=== PATIENT | female | born 1960 | race Caucasian/White ===

== ENCOUNTER 2018-07-05 01:43 | Emergency (ER) | payer SELFPAY ==
[2018-07-05] MEDS ORDERED: HYDROCODONE/APAP 10/325 TAB ONE (02:21)
[2018-07-05] MEDS ORDERED: CLINDAMYCIN HCL 150 MG CAP ONE (02:22)
[2018-07-05] MEDS ORDERED: KETOROLAC 30 MG/ML INJ ONE (02:22)
--- NOTE | 2018-07-05 02:28 | ER ---
Nurse's Notes [facility] Name: Marychuy Tobar Age: 57 yrs Sex: Female : 1960 Arrival Date: 07/05/2018 Time: 01:44 Bed 15 Private MD: Diagnosis: Dental caries;Gingivitis and periodontal diseases Presentation: 07/05 01:50 Presenting complaint: Patient states: I'm having some toothache at the left lower molar rr5 cap started today. associated with jaw throat and headache pain score of 10/10. 01:50 Transition of care: patient was not received from another setting of care. Onset of rr5 symptoms was July 04, 2018. Risk Assessment: Do you want to hurt yourself or someone else? Patient reports no desire to harm self or others. Initial Sepsis Screen: Does the patient meet any 2 criteria? No. Patient's initial sepsis screen is negative. Does the patient have a suspected source of infection? No. Patient's initial sepsis screen is negative. Care prior to arrival: None. 01:50 Method Of Arrival: Ambulatory rr5 01:50 Acuity: CIERRA 4 rr5 Historical: - Allergies: 01:50 No Known Allergies; rr5 - Home Meds: 01:50 cholesterol medicine [Active]; rr5 - PMHx: 01:50 cholesterol; rr5 - PSHx: 01:50 ; rr5 - Immunization history:: Adult Immunizations up to date, Flu vaccine is not up to date. - Social history:: Smoking status: Patient uses tobacco products, smokes one pack cigarettes per day. - Ebola Screening: : Patient negative for fever greater than or equal to 101.5 degrees Fahrenheit, and additional compatible Ebola Virus Disease symptoms Patient denies exposure to infectious person Patient denies travel to an Ebola-affected area in the 21 days before illness onset. - Family history:: not pertinent. - Hospitalizations: : No recent hospitalization is reported. Screenin:58 Abuse screen: Denies threats or abuse. Denies injuries from another. Nutritional rr5 screening: No deficits noted. Tuberculosis screening: No symptoms or risk factors identified. Fall Risk None identified. Total Butler Fall Scale indicates No Risk (0-24 pts). Assessment: 01:50 General: Appears in no apparent distress. uncomfortable, Behavior is calm, cooperative, rr5 appropriate for age. Pain: Complains of pain in left lower molar tooth Pain radiates to throat, jaw, head Pain currently is 10 out of 10 on a pain scale. Quality of pain is described as aching, Pain began gradually, Is intermittent. 01:50 Neuro: Level of Consciousness is awake, alert, obeys commands, Oriented to person, rr5 place, time, situation, Appropriate for age. Cardiovascular: Capillary refill < 3 seconds Patient's skin is warm and dry. Respiratory: Airway is patent Respiratory effort is even, unlabored, Respiratory pattern is regular, symmetrical. GI: No signs and/or symptoms were reported involving the gastrointestinal system. : No signs and/or symptoms were reported regarding the genitourinary system. EENT: Throat is clear Reports toothache. Derm: No signs and/or symptoms reported regarding the dermatologic system. Musculoskeletal: No signs and/or symptoms reported regarding the musculoskeletal system. 01:50 Respiratory: Breath sounds are clear. rr5 02:50 Reassessment: Patient appears in no apparent distress at this time. Patient is alert, rr5 oriented x 3, equal unlabored respirations, skin warm/dry/pink. I feel o lot better as verbalized. discharge instruction given and explained without complaints made. Patient states feeling better. Patient states symptoms have improved. Vital Signs: 01:50 BP 134 / 99; Pulse 95; Resp 17; Temp 97.9; Pulse Ox 100% ; Weight 45.36 kg; Height 5 rr5 ft. 2 in. (157.48 cm); Pain 10/10; 02:49 BP 107 / 74; Pulse 75; Resp 16; Pulse Ox 99% on R/A; Pain 6/10; rr5 01:50 Body Mass Index 18.29 (45.36 kg, 157.48 cm) rr5 ED Course: 01:44 Patient arrived in ED. do 01:50 Pete Sigala MD is Attending Physician. rn 01:50 Arm band placed on right wrist. rr5 01:51 Jose Alfredo Ma RN is Primary Nurse. rr5 01:55 Triage completed. rr5 01:58 Patient has correct armband on for positive identification. Bed in low position. Call rr5 light in reach. Side rails up X2. Pulse ox on. NIBP on. 02:50 No provider procedures requiring assistance completed. Patient did not have IV access rr5 during this emergency room visit. Administered Medications: 02:11 Drug: Ketorolac 15 mg Route: IM; Site: right gluteus; rr5 02:48 Follow up: Response: No adverse reaction rr5 02:12 Drug: Clindamycin 300 mg Route: PO; rr5 02:48 Follow up: Response: No adverse reaction rr5 02:14 Drug: [place] 10 mg-325 mg 1 tabs Route: PO; rr5 02:48 Follow up: Response: No adverse reaction rr5 Outcome: 02:27 Discharge ordered by . rn 02:50 Discharged to home ambulatory, with family. rr5 02:50 Condition: stable 02:50 Discharge instructions given to patient, Instructed on discharge instructions, follow up and referral plans. medication usage, Demonstrated understanding of instructions, follow-up care, medications, Prescriptions given X 2. 02:51 Patient left the ED. rr5 Signatures: Pete Sigala MD MD rn Louis[place], Jose Alfredo Puente RN RN rr5
--- NOTE | 2018-07-05 02:28 | EDPHYS ---
Physician Documentation [facility] Name: Marychuy Tobar Age: 57 yrs Sex: Female : 1960 Arrival Date: 07/05/2018 Time: 01:44 Bed 15 Private MD: ED Physician Pete Sigala HPI: 07/05 02:02 This 57 yrs old Female presents to ER via Ambulatory with complaints of rn Toothache. 02:02 The patient presents with pain. The problem is located in the left bottom posterior rn teeth. Onset: The symptoms/episode began/occurred 2 day(s) ago. Duration: The symptoms are continuous. Modifying factors: The symptoms are alleviated by nothing, the symptoms are aggravated by chewing, talking. Severity of symptoms: At their worst the symptoms were moderate, in the emergency department the symptoms are unchanged. The patient has experienced similar episodes in the past. Reports hx of multiple dental problems, told by dentist needs teeth pulled, reports moderate pain to left posterior/bottom area, no specific tooth. No facial swelling. No trouble swallowing.. Historical: - Allergies: 01:50 No Known Allergies; rr5 - Home Meds: 01:50 cholesterol medicine [Active]; rr5 - PMHx: 01:50 cholesterol; rr5 - PSHx: 01:50 ; rr5 - Immunization history:: Adult Immunizations up to date, Flu vaccine is not up to date. - Social history:: Smoking status: Patient uses tobacco products, smokes one pack cigarettes per day. - Ebola Screening: : Patient negative for fever greater than or equal to 101.5 degrees Fahrenheit, and additional compatible Ebola Virus Disease symptoms Patient denies exposure to infectious person Patient denies travel to an Ebola-affected area in the 21 days before illness onset. - Family history:: not pertinent. - Hospitalizations: : No recent hospitalization is reported. ROS: 02:02 Constitutional: Negative for fever, chills, and weight loss, Eyes: Negative for injury, rn pain, redness, and discharge, ENT: + dental pain Neck: Negative for injury, pain, and swelling, Respiratory: Negative for shortness of breath, cough, wheezing, and pleuritic chest pain. Exam: 02:02 Constitutional: This is a well developed, well nourished patient who is awake, alert, rn and in no acute distress. ENT: + poor dentition without oral abscess, no stridor, + mild gingival swelling and irritation Vital Signs: 01:50 BP 134 / 99; Pulse 95; Resp 17; Temp 97.9; Pulse Ox 100% ; Weight 45.36 kg; Height 5 rr5 ft. 2 in. (157.48 cm); Pain 10/10; 02:49 BP 107 / 74; Pulse 75; Resp 16; Pulse Ox 99% on R/A; Pain 6/10; rr5 01:50 Body Mass Index 18.29 (45.36 kg, 157.48 cm) rr5 MDM: 01:50 Patient medically screened. rn 02:26 Differential diagnosis: dental caries, gingivitis, dental abscess. Data reviewed: vital rn signs, nurses notes, and as a result, I will discharge patient. Counseling: I had a detailed discussion with the patient and/or guardian regarding: the historical points, exam findings, and any diagnostic results supporting the discharge/admit diagnosis, the need for outpatient follow up, to return to the emergency department if symptoms worsen or persist or if there are any questions or concerns that arise at home. Response to treatment: the patient's symptoms have mildly improved after treatment, and as a result, I will discharge patient. Special discussion: I discussed with the patient/guardian in detail that at this point there is no indication for admission to the hospital. It is understood, however, that if the symptoms persist or worsen the patient needs to return immediately for re-evaluation. Based on the history and exam findings, there is no indication for further emergent testing or inpatient evaluation. I discussed with the patient/guardian the need to see a dentist for further evaluation of the symptoms. Administered Medications: 02:11 Drug: Ketorolac 15 mg Route: IM; Site: right gluteus; rr5 02:48 Follow up: Response: No adverse reaction rr5 02:12 Drug: Clindamycin 300 mg Route: PO; rr5 02:48 Follow up: Response: No adverse reaction rr5 02:14 Drug: [place] 10 mg-325 mg 1 tabs Route: PO; rr5 02:48 Follow up: Response: No adverse reaction rr5 Disposition: 07/05/18 02:27 Discharged to Home. Impression: Dental caries, Gingivitis and periodontal diseases. - Condition is Stable. - Discharge Instructions: Dental Pain. - Prescriptions for Clindamycin HCl 300 mg Oral Capsule - take 1 capsule by ORAL route every 6 hours for 10 days; 40 capsule. Tylenol- Codeine #3 300-30 mg Oral Tablet - take 1 tablet by ORAL route every 6 hours As needed; 15 tablet. - Medication Reconciliation Form, Thank You Letter, Antibiotic Education, Prescription Opioid Use form. - Follow up: Private Physician; When: As needed; Reason: Recheck today's complaints, Re-evaluation by your physician. - Problem is an ongoing problem. - Symptoms have improved. Signatures: Pete Sigala MD MD rn Roque, Raymond, RN RN rr5 Corrections: (The following items were deleted from the chart) 02:51 02:27 07/05/2018 02:27 Discharged to Home. Impression: Dental caries; Gingivitis and rr5 periodontal diseases. Condition is Stable. Forms are Medication Reconciliation Form, Thank You Letter, Antibiotic Education, Prescription Opioid Use. Follow up: Private Physician; When: As needed; Reason: Recheck today's complaints, Re-evaluation by your physician. Problem is an ongoing problem. Symptoms have improved. rn
== END 2018-07-05 02:51 | disposition home or self-care (01) ==
LOC: ER 01:43
DX: K02.9 Dental caries, unspecified (principal); K05.10 Chronic gingivitis, plaque induced; K05.6 Periodontal disease, unspecified; F17.210 Nicotine dependence, cigarettes, uncomplicated; E78.00 Pure hypercholesterolemia, unspecified
CPT/HCPCS: 96372; 99283

== ENCOUNTER 2019-07-25 13:18 | Emergency (ER) | payer OTHER, SELFPAY ==
--- NOTE | 2019-07-25 14:19 | ER ---
Nurse's Notes [facility] Name: Marychuy Tobar Age: 58 yrs Sex: Female : 1960 Arrival Date: 07/25/2019 Time: 13:26 Bed Waiting Private MD: Diagnosis: ED Course: 07/24 13:26 Patient arrived in ED. as 14:18 Patient's name was called from ER lobby. Unable to locate patient. Will disposition as ca1 left without being seen by a provider. Administered Medications: No medications were administered Outcome: 14:19 Patient left the ED. ca1 Signatures: Radha Harris Cheryl RN RN ca1
== END 2019-07-25 14:19 | disposition left against medical advice (07) ==
LOC: ER 13:18
DX: Z53.21 Procedure and treatment not carried out due to patient leaving prior to being seen by health care provider (principal)

== ENCOUNTER 2020-06-01 10:20 | Emergency (ER) | payer OTHER ==
--- NOTE | 2020-06-01 15:23 | ER ---
Nurse's Notes [facility] Name: Marychuy Tobar Age: 59 yrs Sex: Female : 1960 Arrival Date: 06/01/2020 Time: 10:25 Bed 26 Private MD: Diagnosis: Cellulitis and acute lymphangitis of other parts of limb;Cellulitis and acute lymphangitis of trunk;Furuncle of left upper limb;Furuncle of right upper limb Presentation: 06/01 10:28 Chief complaint: Patient states: Was cutting trees last week, started having sores and ca1 rash on my arms. Some are healing but others is getting worse. HX of Staph infection. Coronavirus screen: Client denies travel out of the [place] in the last 14 days. At this time, the client does not indicate any symptoms associated with coronavirus-19. Ebola Screen: Patient negative for fever greater than or equal to 101.5 degrees Fahrenheit, and additional compatible Ebola Virus Disease symptoms Patient denies exposure to infectious person. Patient denies travel to an Ebola-affected area in the 21 days before illness onset. No symptoms or risks identified at this time. Initial Sepsis Screen: Does the patient meet any 2 criteria? No. Patient's initial sepsis screen is negative. Does the patient have a suspected source of infection? No. Patient's initial sepsis screen is negative. Risk Assessment: Do you want to hurt yourself or someone else? Patient reports no desire to harm self or others. Onset of symptoms was June 01, 2020. 10:28 Method Of Arrival: Ambulatory ca1 10:28 Acuity: CIERRA 4 ca1 Historical: - Allergies: 10:31 No Known Allergies; ca1 - Home Meds: 10:31 Adderall XR Oral [Active]; ca1 - PMHx: 10:31 cholesterol; ca1 - PSHx: 10:31 ; ca1 - Immunization history:: Flu vaccine is not up to date. - Social history:: Smoking status: Patient reports the use of cigarette tobacco products, smokes one-half pack cigarettes per day. - Family history:: not pertinent. Screenin:30 Abuse screen: Denies threats or abuse. Nutritional screening: No deficits noted. aa5 Tuberculosis screening: No symptoms or risk factors identified. Fall Risk None identified. Assessment: 13:30 General: Appears comfortable, Behavior is calm, cooperative. Pain: Denies pain. Neuro: aa5 Level of Consciousness is awake, alert, obeys commands, Oriented to person, place, time, situation. Cardiovascular: Patient's skin is warm and dry. Respiratory: Airway is patent Respiratory effort is even, unlabored, Respiratory pattern is regular, symmetrical. GI: No signs and/or symptoms were reported involving the gastrointestinal system. : No signs and/or symptoms were reported regarding the genitourinary system. EENT: No signs and/or symptoms were reported regarding the EENT system. Derm: Skin is pink, warm \T\ dry. Rash noted that is with scabs noted to michael arms, pt reports hx of staph infections. Musculoskeletal: Range of motion: intact in all extremities. 15:35 Reassessment: Patient is alert, oriented x 3, equal unlabored respirations, skin aa5 warm/dry/pink. Vital Signs: 10:28 BP 123 / 75; Pulse 97; Resp 16 S; Temp 98.3(O); Pulse Ox 98% on R/A; Weight 45.36 kg ca1 (R); Height 5 ft. 2 in. (157.48 cm) (R); Pain 0/10; 10:28 Body Mass Index 18.29 (45.36 kg, 157.48 cm) ca1 ED Course: 10:25 Patient arrived in ED. ds1 10:30 Triage completed. ca1 10:31 Arm band placed on right wrist. ca1 13:15 Tiffanie Acuna, RN is Primary Nurse. aa5 13:30 Patient has correct armband on for positive identification. Bed in low position. Call aa5 light in reach. Side rails up X 1. 13:35 Samuel Benítez MD is Attending Physician. celeste 15:35 No provider procedures requiring assistance completed. Patient did not have IV access aa5 during this emergency room visit. Administered Medications: 14:53 Drug: [place] (7.5 mg-325 mg) 1 tabs Route: PO; aa5 15:35 Follow up: Response: No adverse reaction aa5 14:54 Drug: Bactrim (160 mg-800 mg (DS) 1 tablet Route: PO; aa5 15:35 Follow up: Response: No adverse reaction aa5 14:54 Drug: Doxycycline 100 mg Route: PO; aa5 15:35 Follow up: Response: No adverse reaction aa5 14:54 Drug: Bactroban Ointment 2 % 1 application Route: Topical; Site: affected area; aa5 Outcome: 15:22 Discharge ordered by . celeste 15:35 Discharged to home ambulatory. aa5 15:35 Condition: stable 15:35 Discharge instructions given to patient, Instructed on discharge instructions, follow up and referral plans. medication usage, Demonstrated understanding of instructions, follow-up care, medications, Prescriptions given X 3. 15:38 Patient left the ED. aa5 Signatures: Samuel Benítez MD MD cha Sanford, Demi ds1 Tiffanie Acuna, RN RN aa5 Ana Vale RN RN ca1
--- NOTE | 2020-06-01 15:23 | EDPHYS ---
Physician Documentation [facility] Name: Marychuy Tobar Age: 59 yrs Sex: Female : 1960 Arrival Date: 06/01/2020 Time: 10:25 Bed 26 Private MD: BEATRIZ Physician Samuel Benítez HPI: 06/01 15:16 This 59 yrs old Female presents to ER via Ambulatory with complaints of Arm celeste Rash. 15:16 The patient presents with cellulitis of the right hand, left hand, right arm and left celeste arm, the patient presents with a swollen area of the chest, right arm and left arm. Description: erythematous, swollen. Onset: The symptoms/episode began/occurred 10 day(s) ago. Possible cause(s): yard work, possible bites, staph. Associated signs and symptoms: Pertinent positives: drainage, erythema. Modifying factors: the symptoms are alleviated by remaining still, the symptoms are aggravated by pressure, squeezing the lesion and expressing the contents, touching. Severity of symptoms: At their worst the symptoms were mild, moderate, in the emergency department the symptoms are unchanged. The patient has experienced a previous episode. Historical: - Allergies: 10: No Known Allergies; ca1 - Home Meds: : Adderall XR Oral [Active]; ca1 - PMHx: : cholesterol; ca1 - PSHx: :31 ; ca1 - Immunization history:: Flu vaccine is not up to date. - Social history:: Smoking status: Patient reports the use of cigarette tobacco products, smokes one-half pack cigarettes per day. - Family history:: not pertinent. ROS: 15:16 Constitutional: Negative for fever, chills, and weight loss, Eyes: Negative for injury, celeste pain, redness, and discharge, ENT: Negative for injury, pain, and discharge, Neck: Negative for injury, pain, and swelling, Cardiovascular: Negative for chest pain, palpitations, and edema, Respiratory: Negative for shortness of breath, cough, wheezing, and pleuritic chest pain, Abdomen/GI: Negative for abdominal pain, nausea, vomiting, diarrhea, and constipation, Back: Negative for injury and pain, : Negative for injury, bleeding, discharge, and swelling, Neuro: Negative for headache, weakness, numbness, tingling, and seizure, Psych: Negative for depression, anxiety, suicide ideation, homicidal ideation, and hallucinations, Allergy/Immunology: Negative for hives, rash, and allergies, Endocrine: Negative for neck swelling, polydipsia, polyuria, polyphagia, and marked weight changes, Hematologic/Lymphatic: Negative for swollen nodes, abnormal bleeding, and unusual bruising. 15:16 MS/extremity: Positive for erythema, pain, rash, swelling, warmth, of the right hand, left hand, right arm and left arm. Exam: 15:16 Constitutional: This is a well developed, well nourished patient who is awake, alert, celeste and in no acute distress. Head/Face: Normocephalic, atraumatic. Eyes: Pupils equal round and reactive to light, extra-ocular motions intact. Lids and lashes normal. Conjunctiva and sclera are non-icteric and not injected. Cornea within normal limits. Periorbital areas with no swelling, redness, or edema. ENT: Nares patent. No nasal discharge, no septal abnormalities noted. Tympanic membranes are normal and external auditory canals are clear. Oropharynx with no redness, swelling, or masses, exudates, or evidence of obstruction, uvula midline. Mucous membranes moist. Neck: Trachea midline, no thyromegaly or masses palpated, and no cervical lymphadenopathy. Supple, full range of motion without nuchal rigidity, or vertebral point tenderness. No Meningismus. Chest/axilla: Normal chest wall appearance and motion. Nontender with no deformity. No lesions are appreciated. Cardiovascular: Regular rate and rhythm with a normal S1 and S2. No gallops, murmurs, or rubs. Normal PMI, no JVD. No pulse deficits. Respiratory: Lungs have equal breath sounds bilaterally, clear to auscultation and percussion. No rales, rhonchi or wheezes noted. No increased work of breathing, no retractions or nasal flaring. Abdomen/GI: Soft, non-tender, with normal bowel sounds. No distension or tympany. No guarding or rebound. No evidence of tenderness throughout. Back: No spinal tenderness. No costovertebral tenderness. Full range of motion. Female : Normal external genitalia. MS/ Extremity: Pulses equal, no cyanosis. Neurovascular intact. Full, normal range of motion. Neuro: Awake and alert, GCS 15, oriented to person, place, time, and situation. Cranial nerves II-XII grossly intact. Motor strength 5/5 in all extremities. Sensory grossly intact. Cerebellar exam normal. Normal gait. Psych: Awake, alert, with orientation to person, place and time. Behavior, mood, and affect are within normal limits. 15:16 Skin: abscess, that is small, with fluctuance, with induration, with surrounding cellulitis, that is mild, cellulitis, that is mild, induration, that is mild is noted. Vital Signs: 10:28 BP 123 / 75; Pulse 97; Resp 16 S; Temp 98.3(O); Pulse Ox 98% on R/A; Weight 45.36 kg ca1 (R); Height 5 ft. 2 in. (157.48 cm) (R); Pain 0/10; 10:28 Body Mass Index 18.29 (45.36 kg, 157.48 cm) ca1 MDM: 13:35 Patient medically screened. [facility] 15:20 Differential diagnosis: abscess, cellulitis, insect bite. Data reviewed: vital signs, [facility] nurses notes. 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 Counseling: I had a detailed discussion with the patient and/or guardian regarding: the historical points, exam findings, and any diagnostic results supporting the discharge/admit diagnosis, the need for outpatient follow up, for definitive care, a family practitioner. Administered Medications: 14:53 Drug: [place] (7.5 mg-325 mg) 1 tabs Route: PO; aa5 15:35 Follow up: Response: No adverse reaction aa5 14:54 Drug: Bactrim (160 mg-800 mg (DS) 1 tablet Route: PO; aa5 15:35 Follow up: Response: No adverse reaction aa5 14:54 Drug: Doxycycline 100 mg Route: PO; aa5 15:35 Follow up: Response: No adverse reaction aa5 14:54 Drug: Bactroban Ointment 2 % 1 application Route: Topical; Site: affected area; aa5 Disposition: 06/01/20 15:22 Discharged to Home. Impression: Cellulitis and acute lymphangitis of other parts of limb, Cellulitis and acute lymphangitis of trunk, Furuncle of left upper limb, Furuncle of right upper limb. - Condition is Stable. - Discharge Instructions: Skin Abscess, Insect Bite, [id number], Insect Bite, Skin Abscess, [id number], Cellulitis, Adult, [id number]. - Prescriptions for Bactroban 2 % Topical Ointment - Apply to affected area 1 application by TOPICAL route every 12 hours; 30 gram. Doxycycline Hyclate 100 mg Oral Tablet - take 1 tablet by ORAL route every 12 hours; 20 tablet. Bactrim DS 800- 160 mg Oral Tablet - take 1 tablet by ORAL route every 12 hours for 10 days; 20 tablet. - Medication Reconciliation Form, Thank You Letter, Antibiotic Education, Prescription Opioid Use form. - Follow up: Private Physician; When: 1 - 2 days; Reason: Recheck today's complaints, Re-evaluation by your physician. - Problem is new. - Symptoms have improved. Signatures: Samuel Benítez MD MD cha Calderon, Audri RN RN aa5 Ana Vale RN RN ca1 Corrections: (The following items were deleted from the chart) 15:38 15:22 06/01/2020 15:22 Discharged to Home. Impression: Cellulitis and acute aa5 lymphangitis of other parts of limb; Cellulitis and acute lymphangitis of trunk; Furuncle of left upper limb; Furuncle of right upper limb. Condition is Stable. Forms are Medication Reconciliation Form, Thank You Letter, Antibiotic Education, Prescription Opioid Use. Follow up: Private Physician; When: 1 - 2 days; Reason: Recheck today's complaints, Re-evaluation by your physician. Problem is new. Symptoms have improved. celeste
[2020-06-01 15:45] VITALS: BP 123/75; TEMP 98.3; O2SAT 98
[2020-06-01] MEDS ORDERED: SMZ./TMP. 800/160 MG TABLET ONE (16:33)
[2020-06-01] MEDS ORDERED: CIPROFLOXACIN 400mg IV 400 MG/200 ML BAG IV ONE (16:34)
[2020-06-01] MEDS ORDERED: MUPIROCIN 2% OINT 22GM TUBE TOP ONE (16:34)
== END 2020-06-01 15:38 | disposition home or self-care (01) ==
LOC: ER 10:20
DX: L03.113 Cellulitis of right upper limb (principal); L03.898 Acute lymphangitis of other sites; L03.319 Cellulitis of trunk, unspecified; L03.329 Acute lymphangitis of trunk, unspecified; L02.424 Furuncle of left upper limb; L02.423 Furuncle of right upper limb; F17.210 Nicotine dependence, cigarettes, uncomplicated
CPT/HCPCS: 99283; J0744